=== PATIENT | male | born 1995 | race Caucasian/White ===

== ENCOUNTER 2022-07-28 06:09 | Emergency (ER) | payer SELFPAY ==
[~2022-07-28] VITALS: Ht 190.5 cm; Wt 113.4 kg
[2022-07-28 06:25] VITALS: BP 127/73
--- NOTE | 2022-07-28 06:25 | NUR ---
TO BED AMBULATORY
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
--- NOTE | 2022-07-28 07:05 | NUR ---
ERMD AT BEDSIDE
--- NOTE | 2022-07-28 07:21 | NUR ---
Patient discharged with v/s stable. Written and verbal after care instructions given. Patient verbalized understanding. Ambulatory with steady gait. All questions addressed prior to discharge. Advised to follow up with PMD.
== END 2022-07-28 07:21 | disposition home or self-care (01) ==
LOC: MED 06:09
DX: H92.01 Otalgia, right ear (principal)
CPT/HCPCS: 99281